=== PATIENT | male | born 1965 | race Caucasian/White ===

== ENCOUNTER → 2017-10-03 | Emergency (ER) | payer MEDICAID | END | disposition home or self-care (01) | LOC: FTE 06:47 | DX: R05 Cough (principal); J34.89 Other specified disorders of nose and nasal sinuses | CPT/HCPCS: 99283 ==

== ENCOUNTER 2019-03-16 06:07 | Emergency (ER) | payer MEDICAID | END 2019-03-16 07:42 | disposition home or self-care (01) | LOC: FTE 06:07 | DX: J04.0 Acute laryngitis (principal); I10 Essential (primary) hypertension | CPT/HCPCS: 99282 ==